=== PATIENT | female | born 1995 | race Caucasian/White ===

== ENCOUNTER → 2019-04-15 17:26 | Outpatient (CLI) | payer OTHER, MEDICAID, SELFPAY ==
[2019-04-15 17:59] LABS: Add Manual Diff / Slide Review NO; Basophils Absolute Auto 0 /uL (0-100); Basophils Percent Auto 0.3 % (0-2); Eosinophils Absolute Auto 400 /uL (0-450); Eosinophils Percent Auto 4.6 % (2-4); Hematocrit 42.4 % (36-46); Lymphocytes Absolute Auto 2200 /uL (1100-4500); Lymphocytes Percent Auto 24.3 % (25-40); Mean Corpuscular HGB Conc 33.1 % (30-36); Mean Corpuscular Hemoglobin 32.4 PG (26-34); Monocytes Absolute Auto 600 /uL (0-900); Monocytes Percent Auto 6.3 % (3-14); Neutrophils Absolute Auto 5800 /uL (1500-7000); Neutrophils Percent Auto 64.5 % (50-75); Platelet Count 208 X10^3/uL (150-400); Red Blood Cell Count 4.33 X10^6/uL (4.0-5.2); Red Cell Distribution Width 12.1 % (11.6-14.8)
[2019-04-15 18:08] LABS: Appearance Urine UA CLEAR; Bilirubin Urine UA NEGATIVE (NEGATIVE); Color Urine UA YELLOW; Glucose Urine UA NEGATIVE (Negative); Ketones Urine UA NEGATIVE (NEGATIVE); Leukocyte Esterase Urine UA NEGATIVE (NEGATIVE); Nitrite Urine UA NEGATIVE (Negative); Occult Blood Urine UA NEGATIVE (Negative); Protein Urine UA NEGATIVE (Negative); Specific Gravity Urine UA 1.015 (1.000-1.035); Urobilinogen Urine UA 0.2 E.U./dL (0.2)
[2019-04-15 20:33] LABS: Hepatitis B Surface Antigen NEGATIVE s/c (NEGATIVE); Rubella Antibody IgG 51.2 IU/mL (>15)
[2019-04-15 20:52] LABS: HIV 1 & 2 Ab/Ag 4th Gen Combo NEGATIVE (NEGATIVE); Hep C Virus Ab w/Reflex Quant NEGATIVE s/c (NEGATIVE)
[2019-04-17 20:35] LABS: RPR Screen Nonreactive (Nonreactive)
[2019-04-18 19:53] LABS: HCG Quantitative /Beta subunit 14552 mIU/mL
[2019-04-19 08:02] LABS: Varicella IgG Antibody < 135.00 Index (< 135.00)
== END ==
PROVIDERS: Family Provider Physician Assistant Medical; PCP Physician Assistant Medical; Referring Provider Obstetrics & Gynecology; Visit Provider Obstetrics & Gynecology
DX: Z34.81 Encounter for supervision of other normal pregnancy, first trimester (principal); N96 Recurrent pregnancy loss
CPT/HCPCS: 36415; 80055; 81003; 84702; 86787; 86803; 86850; 86900; 86901; 87086; 87389

== ENCOUNTER → 2019-07-30 11:41 | Outpatient (CLI) | payer OTHER, MEDICAID, SELFPAY ==
--- NOTE | 2019-07-30 11:43 | DI.US.S_ITS ---
PROCEDURE: US OB >= 14 WEEKS FETUS INDICATIONS: ANATOMY SCAN OUTSIDE/PRIOR DATING DATA: Last menstrual period (LMP): 03/02/19. LMP-based estimated date of delivery (SAJI): 11/23/19. First dating scan (date and location): 05/02/19. Estimated date of delivery (SAJI) from first dating scan: 12/15/19. TECHNIQUE: Real-time scanning was performed of the fetus, with image documentation and biometric measurements. Endovaginal scanning: The performed COMPARISON: [facility], OB <= 14 WEEKS FETUS, 05/02/2019, 12:04. [facility], OB <= 14 WEEKS FETUS, 04/25/2019, 11:35. [facility], OB <= 14 WEEKS FETUS, 04/15/2019, 17:06. FINDINGS: General: A single living intrauterine gestation is present. Presentation: Breech. Placenta: Placental position is anterior, without previa. Amniotic fluid index: 16.2 cm, normal range is 5-24 cm. heart rate: 160 beats per minute. Maternal cervical canal: 3.2 cm long. Normal lower limit is 2.5 cm. biometrics: Biparietal diameter: 4.7 cm, 20 weeks one day Head circumference: 16.9 cm, 19 weeks 4 days Abdominal circumference: 14.4 cm, 19 weeks 5 days Femur length: 3.2 cm, 20 weeks zero days Estimated gestational age from initial scan: 20 weeks 2 days Composite gestational age from present scan: 20 weeks one day Estimated weight and percentile: 316 g, 23rd percentile Measurement variability for biometric dating: +/- 7 days from 14 weeks to 15 weeks 6 days gestation, +/- 10 days from 16 weeks to 21 weeks 6 days gestation, +/- 2 weeks from 22 weeks to 27 weeks 6 days gestation, +/- 3 weeks for 28 weeks gestation or later. weight reference: 4500 g or EFW >90/95% is considered macrosomia or large for gestational age. EFW <10% is small for gestational age. EFW 5% or less is considered intra-uterine growth restriction. Anatomic survey: Neuro: Ventricles are non-dilated at less than 10 mm. Cisterna magna is normal at 3-11 mm. Cerebellum is normal in size and morphology. Nuchal skin fold: Normal at less than 6 mm between 14-21 weeks gestational age. Face: Nose and lips, facial profile are normal. Spine: No evidence for spina bifida. Heart: 4-chambered heart is present, with normal ventricular outflow tracts. Diaphragm: Diaphragm is intact. Stomach: Left-sided stomach is present. Kidneys: No hydronephrosis. Normal is less than 5 mm in 2nd trimester, less than 7 mm in 3rd trimester. Cord: 3-vessel cord has orthotopic insertion. Bladder: Normal in size. Extremities: All 4 extremities identified. IMPRESSION: Single living intrauterine fetus in breech presentation demonstrating expected interval growth. Normal anatomic survey Dictated by: Jose D Javier M.D. on 07/30/2019 at 16:10 Approved by: Jose D Javier M.D. on 07/30/2019 at 16:14
== END ==
PROVIDERS: Family Provider Physician Assistant Medical; Referring Provider Obstetrics & Gynecology; Visit Provider Obstetrics & Gynecology
DX: Z36.89 Encounter for other specified antenatal screening (principal); Z3A.20 20 weeks gestation of pregnancy
CPT/HCPCS: 76811

== ENCOUNTER → 2019-07-31 16:18 | Outpatient (CLI) | payer OTHER, MEDICAID, SELFPAY | PROVIDERS: Family Provider Physician Assistant Medical; Visit Provider Obstetrics & Gynecology | DX: Z34.82 Encounter for supervision of other normal pregnancy, second trimester (principal); R30.0 Dysuria; Z3A.20 20 weeks gestation of pregnancy | CPT/HCPCS: 87077; 87086; 87186 ==

== ENCOUNTER → 2019-09-19 13:45 | Outpatient (CLI) | payer OTHER, MEDICAID, SELFPAY ==
[2019-09-19 16:14] LABS: Hematocrit 28.2 % (36-46); Hemoglobin 9.8 g/dL (12.0-16.0)
[2019-09-19 16:57] LABS: GTT (PREG) 1 Hour PP 50gm Dose 134 mg/dL (76-139)
== END ==
PROVIDERS: Family Provider Physician Assistant Medical; Referring Provider Obstetrics & Gynecology; Visit Provider Obstetrics & Gynecology
DX: Z34.92 Encounter for supervision of normal pregnancy, unspecified, second trimester (principal); N39.0 Urinary tract infection, site not specified; Z3A.25 25 weeks gestation of pregnancy
CPT/HCPCS: 36415; 82950; 85014; 85018; 87077; 87086; 87186

== ENCOUNTER 2019-10-16 20:08 | Observation (INO) | payer OTHER, MEDICAID, SELFPAY ==
[2019-10-16] VITALS (11 sets, daily range): BP systolic 108–137; BP diastolic 59–81; PULSE 87–107; RESP 19; TEMP 37.3; O2SAT 98–100; BMI 25.3
[2019-10-16 20:41] LABS: RBC Urine None Seen (0-5/HPF)
[2019-10-16 20:49] LABS: Amorphous Sediment Urine 1+; Bacteria Urine Moderate (10-30); Culture Indicated Urine Specimen Cultured; Squamous Epithelial Cell Urine 1-5 /HPF (0-5/HPF); WBC Urine 5-10/HPF (0-5/HPF)
--- NOTE | 2019-10-16 21:18 | ED.FEMALEGU ---
HPI - Female Genitourinary General Chief complaint: Urogenital-Female Stated complaint: right sided back pain Time Seen by Provider: 10/16/19 20:10 Source: patient Mode of arrival: Family Vehicle Limitations: no limitations History of Present Illness HPI Narrative: 23-year-old female occasional smoker is a at 31 weeks who presents with her mother and a chief complaint of a few days of increasing right flank pain with fever, chills, dysuria and frequency. She has had nausea but no vomiting. She denies any dizziness, weakness or lightheadedness. Her discomfort is worse with motion and improves with rest. She denies any radiation of the pain. She feels generally unwell. She denies vaginal bleeding, discharge or leakage of fluid but does admit to some lower pelvic cramping and discomfort. She states this discomfort comes and goes with a pattern of its own. She is still feeling her baby move as stated is decreased when compared to normal MD Complaint: dysuria, UTI and pelvic pain Onset (ago): day(s) Location: suprapubic Female Urogenital Radiation: R Flank Severity: moderate Quality: Aching and Cramping Duration: constant (flank) and intermittent (pelvic) Exacerbating factors: urination Related Data Home Medications Medication Instructions Recorded Confirmed albuterol sulfate [Ventolin HFA] 1 puff INH PRN PRN #0 06/10/12 10/17/19 vitamins no.119-iron 1 tab PO DAILY 04/15/19 10/17/19 fumarate 29 mg-folic acid 1 mg tablet Previous Rx's Medication Instructions Recorded metoclopramide HCl 10 mg tablet 10 mg PO Q6H PRN #30 tab 08/07/19 Allergies Allergy/AdvReac Type Severity Reaction Status Date / Time No Known Drug Allergies Allergy Verified 09/19/19 14:39 Review of Systems Constitutional Constitutional: Denies chills, Denies fatigue, Denies fever(s), Denies frequent falls, Denies lethargy and Denies weakness Eyes Eyes: Denies change in vision, Denies eye discharge, Denies irritation and Denies loss of vision ENT Ears, Nose, Mouth, and Throat: Denies change in voice, Denies dizziness, Denies neck pain, Denies sore throat and Denies throat swelling Cardiovascular Cardiovascular: Denies chest pain, Denies irregular heart rhythm, Denies lightheadedness, Denies palpitations, Denies dyspnea, Denies dyspnea on exertion and Denies orthopnea Respiratory Respiratory: Denies cough, Denies dyspnea, Denies dyspnea on exertion and Denies wheezing Gastrointestinal Gastrointestinal: Denies abdominal pain, Denies change in bowel habits, Denies diarrhea, Denies nausea and Denies vomiting Genitourinary Genitourinary: Reports dysuria Genitourinary: Reports dysuria and Reports pelvic pain Musculoskeletal Musculoskeletal: Denies neck pain and Denies numbness Integumentary/Breasts Skin/Breast: Denies pruritus, Denies erythema, Denies rash and Denies wounds Neurologic Neurologic: Denies behavioral changes, Denies confusion, Denies dizziness, Denies frequent falls, Denies loss of vision, Denies numbness and Denies weakness Psychiatric Psychiatric: Denies anxiety, Denies behavioral changes, Denies confusion, Denies depression, Denies homicidal ideation and Denies suicidal ideation Endocrine Endocrine: Denies fatigue, Denies flushing and Denies palpitations Hematologic/Lymphatic Hematologic/Lymphatic: Denies easy bruising Allergic/Immunologic Allergic/Immunologic: Denies urticaria, Denies throat swelling and Denies wheezing Patient History Medical History (Updated 10/17/19 @ 00:46 by Dung Hollis DO) Anxiety (Acute) Asthma (Acute) Depression (Acute) History of multiple miscarriages (Acute) OCD (obsessive compulsive disorder) (Acute) Pyelonephritis (Acute) Tonsillitis (Acute) UTI (urinary tract infection) (Acute) Surgical History (Updated 04/12/19 @ 12:47 by Payton Mittal RN) History of inguinal hernia repair (Acute) Family History (Updated 04/12/19 @ 12:51 by Payton Mittal RN) Mother Hypertension Recurrent strokes Father Adopted Grandfather Tourettes syndrome Family/Other Tourettes syndrome Brother Tourettes syndrome Autism Grandmother Breast cancer Substance Use Type: does not use Exam Narrative Exam Narrative: GENERAL: [23] year old patient appears stated age. Well-nourished, well-developed patient, in mild distress. Obviously feeling unwell HEAD: Atraumatic. Normocephalic. EYES: Pupils equal round and reactive. Extraocular motions intact. No scleral icterus. No injection or drainage. ENT: Nose without bleeding, purulent drainage. Throat without erythema, tonsillar hypertrophy or exudate. Airway patent. NECK: Trachea midline. Non tender CARDIOVASCULAR: Regular rate and rhythm without murmurs, gallops, or rubs. RESPIRATORY: Clear to auscultation. Breath sounds equal bilaterally. No wheezes, rales, or rhonchi. GASTROINTESTINAL: Abdomen soft, gravid above the umbilicus, motion palpated, nondistended. EXTREMITIES: No edema or joint tenderness. BACK: Tender to palpate in the right flank NEURO: AOx3. SKIN: No rash or erythema of visible areas Initial Vital Signs Initial Vital Signs: Vital Signs Temperature 99.1 F 10/16/19 20:14 Pulse Rate 107 H 10/16/19 20:14 Respiratory Rate 19 10/16/19 20:14 Blood Pressure 129/80 10/16/19 20:14 Pulse Oximetry 98 10/16/19 20:14 Course Course Course Narrative: Discussion with on-call Ob (Dr. Quezada) to discuss this case. We sure the opinion that given her advanced , abnormal vital signs, evidence suggesting pyelonephritis she is most appropriately admitted into the hospital, given antibiotics, fluids and closely followed. Orders Ordered: ED Orders 10/16/19 20:20 Urine Culture Stat Urine Microscopic Stat 10/16/19 21:34 Basic Metabolic Panel Stat Complete Blood Count AUTO DIFF Stat Lactate (Lactic Acid) Stat Uric Acid Stat 10/16/19 21:50 US OB limited Stat US renal complete Stat 10/16/19 22:00 Blood Culture Stat Acetaminophen (Tylenol) 650 mg PO Q6HR PRN PRN Reason: Fever/Mild Pain (1-3) Last Admin: 10/17/19 00:33 Dose: 650 mg Documented by: WILFRED Albuterol (Ventolin Hfa (Vent/Covid R/O)) 1 puff INH PRN ONEAL Last Admin: 10/17/19 01:55 Dose: Not Given Documented by: WILFRED Lactated Ringer's (Lactated Ringers) 1,000 mls @ 150 mls/hr IV CONT ONEAL Last Admin: 10/17/19 00:33 Dose: 150 mls/hr Documented by: WILFRED Metoclopramide HCl (Reglan) 10 mg PO Q6H PRN PRN Reason: nausea and vomiting Ondansetron HCl (Zofran) 4 mg IV Q4HR PRN PRN Reason: Nausea And Vomiting Discontinued Medications Sodium Chloride (Normal Saline 0.9%) 1,000 mls @ 1,000 mls/hr IV BOLUS ONE Stop: 10/16/19 22:25 Last Infusion: 10/16/19 23:16 Dose: 0 mls/hr Documented by: Admin: 10/16/19 21:26 Dose: 1,000 mls/hr Documented by: AWAIS Ceftriaxone Sodium/Dextrose (Rocephin) 1 gm in 50 mls @ 100 mls/hr IV NOW ONE Stop: 10/16/19 21:55 Last Infusion: 10/16/19 23:16 Dose: 0 mls/hr Documented by: Admin: 10/16/19 22:45 Dose: 100 mls/hr Documented by: AWAIS Vital Signs Vital signs: Vital Signs - 8 hr 10/16/19 21:00 10/16/19 21:30 10/16/19 22:00 Pulse Rate 91 H 96 H 87 Blood Pressure 133/77 136/81 132/68 Pulse Oximetry 98 98 100 10/16/19 22:12 10/16/19 22:23 Pulse Rate 101 H 97 H Blood Pressure 137/78 Pulse Oximetry 99 99 MDM - Female Genitourinary Lab Data Result diagrams: 10/16/19 21:34 10/16/19 21:34 Labs: Lab Results 10/16/19 10/16/19 10/16/19 Range/Units 20:20 21:34 21:34 WBC 9.7 (4.5-11.0) X10^3/uL RBC 2.90 L (4.0-5.2) X10^6/uL Hgb 9.1 L (12.0-16.0) g/dL Hct 26.1 L (36-46) % MCV 90.0 (80-100) fL MCH 31.3 (26-34) PG MCHC 34.8 (30-36) % RDW 12.5 (11.6-14.8) % Plt Count 139 L (150-400) X10^3/uL Neut % (Auto) 76.9 H (50-75) % Lymph % (Auto) 13.1 L (25-40) % [place] % (Auto) 7.8 (3-14) % Eos % (Auto) 2.0 (2-4) % Baso % (Auto) 0.2 (0-2) % Neut # (Auto) 7500 H (4283-2078) /uL Lymph # (Auto) 1300 (3221-2151) /uL [place] # (Auto) 800 (0-900) /uL Eos # (Auto) 200 (0-450) /uL Baso # (Auto) 0 (0-100) /uL Sodium 133 L (137-145) mmol/L Potassium 3.2 L (3.4-5.1) mmol/L Chloride 104 (98-107) mmol/L Carbon Dioxide 24 (22-32) mmol/L BUN 6 L (7-17) mg/dL Creatinine 0.64 (0.52-1.04) mg/dL Estimated GFR > 60.0 (>60) mL/min BUN/Creatinine Ratio 9.4 (6-22) Glucose 81 (70-100) mg/dL Lactate (0.7-2.1) mmol/L Uric Acid (2.5-6.2) mg/dL Calcium 9.5 (8.4-10.2) mg/dL Urine RBC None seen (0-5/HPF) Urine WBC 5-10/hpf H (0-5/HPF) Ur Squamous Epith Cells 1-5 /hpf (0-5/HPF) Amorphous Sediment 1+ Urine Bacteria Moderate (10-30) H (None) Ur Culture Indicated? Specimen cultured COVID-19 PCR (Negative) 10/16/19 10/16/19 10/16/19 Range/Units 21:34 21:34 22:20 WBC (4.5-11.0) X10^3/uL RBC (4.0-5.2) X10^6/uL Hgb (12.0-16.0) g/dL Hct (36-46) % MCV (80-100) fL MCH (26-34) PG MCHC (30-36) % RDW (11.6-14.8) % Plt Count (150-400) X10^3/uL Neut % (Auto) (50-75) % Lymph % (Auto) (25-40) % [place] % (Auto) (3-14) % Eos % (Auto) (2-4) % Baso % (Auto) (0-2) % Neut # (Auto) (3380-4476) /uL Lymph # (Auto) (0168-7839) /uL [place] # (Auto) (0-900) /uL Eos # (Auto) (0-450) /uL Baso # (Auto) (0-100) /uL Sodium (137-145) mmol/L Potassium (3.4-5.1) mmol/L Chloride (98-107) mmol/L Carbon Dioxide (22-32) mmol/L BUN (7-17) mg/dL Creatinine (0.52-1.04) mg/dL Estimated GFR (>60) mL/min BUN/Creatinine Ratio (6-22) Glucose (70-100) mg/dL Lactate 0.6 L (0.7-2.1) mmol/L Uric Acid 5.5 (2.5-6.2) mg/dL Calcium (8.4-10.2) mg/dL Urine RBC (0-5/HPF) Urine WBC (0-5/HPF) Ur Squamous Epith Cells (0-5/HPF) Amorphous Sediment Urine Bacteria (None) Ur Culture Indicated? COVID-19 PCR Negative (Negative) Urine Dip Bedside Urine Glucose Negative Bedside Urine Bilirubin - Negative Bedside Urine Ketone + 15 Urine Specific [place] 1.010 Bedside Urine Occult Blood - Negative Bedside Urine pH 6.5 Bedside Urine Protein +/- 15 Bedside Urine Urobilinogen - Negative Bedside Urine Nitrite - Negative Bedside Urine Leukocytes + 70 Esterase Discharge Plan Departure Patient Disposition: Admitted As Inpatient Clinical Impression: Pyelonephritis affecting Qualifiers: Trimester: third trimester Qualified Code(s): O23.03 - Infections of kidney in , third trimester Discharge Date/Time: 10/17/19 00:01 Admit Date/Time: 10/16/19 22:37 Admit Provider: Beba Quezada
[2019-10-16] MEDS: SODIUM CHLORIDE 0.9% 1,000 ML 1000 ML IV (21:26)
--- NOTE | 2019-10-16 21:30 | PC.NURSE ---
PT states 31 weeks with R flank pain radiating to front lower abd and pelvic pain with fever of 101.5 T, last dose of tylenol 500mg at 1900. Denies vaginal bleeding, G2 L1.
--- NOTE | 2019-10-16 21:50 | DI.US.S_ITS ---
PROCEDURE: US RENAL COMPLETE INDICATIONS: RIGHT FLANK PAIN TECHNIQUE: Real-time scanning was performed of the kidneys and bladder, with image documentation. COMPARISON: None. FINDINGS: Kidneys: Kidneys are normal in size. Right kidney measures 11.4 cm long; left kidney measures 11.1 cm long. Right renal cortical thickness is 1.0 cm; left renal cortical thickness is 1.0 cm. Renal cortical echotexture is normal. The renal . Meds are echogenic bilaterally. No hydronephrosis or nephrolithiasis. No suspicious solid mass lesions. Bladder: Urinary bladder was completely decompressed at the time of imaging and cannot be evaluated. Miscellaneous: No free pelvic fluid. IMPRESSION: 1. No renal stone or hydronephrosis. 2. Bilateral echogenic renal pyramids concerning for nephrocalcinosis. Differential diagnosis is broad, but includes medullary sponge kidney, renal tubular acidosis and hyperparathyroidism. Dictated by: Evette Arora MD, PhD on 10/17/2019 at 7:59 Approved by: Evette Arora MD, PhD on 10/17/2019 at 8:04
--- NOTE | 2019-10-16 21:50 | DI.US.S_ITS ---
PROCEDURE: US OB INDICATIONS: CRAMPING OUTSIDE/PRIOR DATING DATA: Last menstrual period (LMP): March 02, 2019. LMP-based estimated date of delivery (SAJI): November 22, 2019. First dating scan (date and location): May 02, 2019. Estimated date of delivery (SAJI) from first dating scan: December 15, 2019. TECHNIQUE: Real-time scanning was performed of the fetus, with image documentation. Endovaginal scanning: Performed COMPARISON: [facility], OB <= 14 WEEKS FETUS, 04/25/2019, 11:35. Located within [facility], OB <= 14 WEEKS FETUS, 04/15/2019, 17:06. FINDINGS: A single living intrauterine gestation is present. Presentation: Breech Placenta: Placental position is anterior, without previa. Amniotic fluid index: 13.3 cm, normal range is 5-24 cm. heart rate: 165 beats per minute. Maternal cervical canal: Not measured. BPD: 31 weeks 5 days. HC: 31 weeks 6 days. AC: 31 weeks 1 day. FL: 31 weeks 0 days. Estimated gestational age from initial scan: 31 weeks 3 days. Estimated gestational age from current scan: 33 weeks 3 days IMPRESSION: 1. Single living intrauterine gestation with appropriate interval growth. 2. Normal amniotic fluid index. Dictated by: Evette Arora MD, PhD on 10/17/2019 at 8:05 Approved by: Evette Arora MD, PhD on 10/17/2019 at 8:10
[2019-10-16 21:57] LABS: Add Manual Diff / Slide Review NO; Basophils Absolute Auto 0 /uL (0-100); Basophils Percent Auto 0.2 % (0-2); Eosinophils Absolute Auto 200 /uL (0-450); Hematocrit 26.1 % (36-46); Hemoglobin 9.1 g/dL (12.0-16.0); Lymphocytes Absolute Auto 1300 /uL (1100-4500); Lymphocytes Percent Auto 13.1 % (25-40); Mean Corpuscular HGB Conc 34.8 % (30-36); Mean Corpuscular Hemoglobin 31.3 PG (26-34); Monocytes Absolute Auto 800 /uL (0-900); Monocytes Percent Auto 7.8 % (3-14); Neutrophils Absolute Auto 7500 /uL (1500-7000); Neutrophils Percent Auto 76.9 % (50-75); Platelet Count 139 X10^3/uL (150-400); Red Cell Distribution Width 12.5 % (11.6-14.8); White Blood Cell Count 9.7 X10^3/uL (4.5-11.0)
[2019-10-16 22:08] LABS: Lactate (Lactic Acid) 0.6 mmol/L (0.7-2.1); Uric Acid 5.5 mg/dL (2.5-6.2)
[2019-10-16 22:09] LABS: BUN Creatinine Ratio 9.4 (6-22); Blood Urea Nitrogen 6 mg/dL (7-17); Calcium 9.5 mg/dL (8.4-10.2); Carbon Dioxide 24 mmol/L (22-32); Chloride 104 mmol/L (98-107); Estimated Glomerular Filt Rate > 60.0 mL/min (>60); Glucose 81 mg/dL (70-100); HEMOLYSIS < 15 (0-50); Potassium 3.2 mmol/L (3.4-5.1); Sodium 133 mmol/L (137-145)
[2019-10-16] MEDS: CEFTRIAXONE 1 GM/50 ML FROZ.PIGGY IV (22:45)
[2019-10-16 23:28] LABS: COVID19 -Nasal RAPID Negative (Negative)
--- NOTE | 2019-10-16 23:34 | PC.NURSE ---
Heart tones 150 with zero contractions per verbal report of assessment by [facility] JULIETTE Brownlee @ [phone].
[2019-10-17] VITALS (7 sets, daily range): BP systolic 123–153; BP diastolic 67–85; PULSE 67–103; RESP 16–18; TEMP 36.1–36.8; O2SAT 99–101
[2019-10-17] MEDS: LACTATED RINGERS 1,000 ML 150 ML IV ×3 (00:33→14:55)
[2019-10-17] MEDS: ACETAMINOPHEN 325 MG TABLET 650 MG PO ×4 (00:33→22:09)
[2019-10-17] MEDS: CEFAZOLIN 1 GM/50 ML FROZ.PIGGY IV ×2 (14:51→22:09)
--- NOTE | 2019-10-17 15:06 | CM.IDA ---
Initial DCP Assessment Note Patient is a 23 yo female, resident of [place]. Patient 31 weeks , here w/ pyelo, expected to DC back home tomorrow on oral abx PCP: Sheela Felder Payer: Madhu/SHEFALI Met w/patient and her mom in room. Gma and other family taking care of patient's 5 yo while patient admitted. Patient feels confident in discharging home w/her mom and supportive family; per notes patient plans to move out of state after delivery and healing, partner is active duty. No needs identified at this time or barriers to safe return home; will remain available in case this changes. NOHELIA Maxwell
[2019-10-17] MEDS: CALCIUM CARBONATE 500 MG TAB PO (17:17)
--- NOTE | 2019-10-17 18:46 | PM.GYNHP.1 ---
History of Present Illness History of Present Illness Reason for admission: other (Pyelonephritis at 31 weeks gestation) Narrative: Aimee Ortiz is a 23 year old female 7 para 1 at 31 weeks gestation who presented last evening with nausea, fever, and right-sided back pain. She has had good movement. No leakage of fluid or vaginal bleeding. No contractions. No shortness of breath. She threw up once. [facility] Medical History (Updated 10/17/19 @ 00:46 by Dung Hollis DO) Anxiety (Acute) Asthma (Acute) Depression (Acute) History of multiple miscarriages (Acute) OCD (obsessive compulsive disorder) (Acute) Pyelonephritis (Acute) Tonsillitis (Acute) UTI (urinary tract infection) (Acute) Surgical History (Updated 04/12/19 @ 12:47 by Payton Mittal RN) History of inguinal hernia repair (Acute) Family History (Updated 04/12/19 @ 12:51 by Payton Mittal RN) Mother Hypertension Recurrent strokes Father Adopted Grandfather Tourettes syndrome Family/Other Tourettes syndrome Brother Tourettes syndrome Autism Grandmother Breast cancer Social History marital status: unmarried,single household members: family and children pets and animals: Yes (X 5 dogs; X 6 cats - [place] : aware!) education level: vocational occupational status: employed current occupational exposures/hazards: Yes (second hand smoke) special david needs: No Smoking Status: Current some day smoker alcohol intake: never Meds Home Medications and Allergies Home Medications Medication Instructions Recorded Confirmed Type albuterol sulfate [Ventolin HFA] 1 puff INH PRN PRN #0 06/10/12 10/17/19 History vitamins no.119-iron 1 tab PO DAILY 04/15/19 10/17/19 History fumarate 29 mg-folic acid 1 mg tablet metoclopramide HCl 10 mg tablet 10 mg PO Q6H PRN #30 tab 08/07/19 10/17/19 Rx Allergies Allergy/AdvReac Type Severity Reaction Status Date / Time No Known Drug Allergies Allergy Verified 09/19/19 14:39 Exam Vital Signs (past 8 hours): - 10/17/19 11:10 10/17/19 15:30 Temperature 97.1 F L 97.0 F L Pulse Rate 82 96 H Respiratory Rate 18 16 Blood Pressure 123/67 139/74 Pulse Oximetry 99 100 Oxygen Delivery Method Room Air Oxygen Flow Rate 0 Narrative Exam Narrative: Generally: Patient is sitting up in bed, no acute distress Lungs: Clear to auscultation bilaterally Cardiovascular: Regular rate and rhythm Abdomen: Soft, good bowel sounds Fundal height: 32 cm Extremities: Negative Homans, no edema Back: Right CVA tenderness Nonstress test interpretation: Baseline heart rate 140s to 150s. Accelerations present: A few variable decelerations. No contractions. Category 1 tracing. Objective Labs Result Diagrams: 10/16/19 21:34 10/16/19 21:34 Labs: Laboratory Results - last 24 hr 10/16/19 10/16/19 10/16/19 20:20 21:34 21:34 WBC 9.7 RBC 2.90 L Hgb 9.1 L Hct 26.1 L MCV 90.0 MCH 31.3 MCHC 34.8 RDW 12.5 Plt Count 139 L Neut % (Auto) 76.9 H Lymph % (Auto) 13.1 L [place] % (Auto) 7.8 Eos % (Auto) 2.0 Baso % (Auto) 0.2 Neut # (Auto) 7500 H Lymph # (Auto) 1300 [place] # (Auto) 800 Eos # (Auto) 200 Baso # (Auto) 0 Sodium 133 L Potassium 3.2 L Chloride 104 Carbon Dioxide 24 BUN 6 L Creatinine 0.64 Estimated GFR > 60.0 BUN/Creatinine Ratio 9.4 Glucose 81 Lactate Uric Acid Calcium 9.5 Urine RBC None seen Urine WBC 5-10/hpf H Ur Squamous Epith Cells 1-5 /hpf Amorphous Sediment 1+ Urine Bacteria Moderate (10-30) H Ur Culture Indicated? Specimen cultured COVID-19 PCR 10/16/19 10/16/19 10/16/19 21:34 21:34 22:20 WBC RBC Hgb Hct MCV MCH MCHC RDW Plt Count Neut % (Auto) Lymph % (Auto) [place] % (Auto) Eos % (Auto) Baso % (Auto) Neut # (Auto) Lymph # (Auto) [place] # (Auto) Eos # (Auto) Baso # (Auto) Sodium Potassium Chloride Carbon Dioxide BUN Creatinine Estimated GFR BUN/Creatinine Ratio Glucose Lactate 0.6 L Uric Acid 5.5 Calcium Urine RBC Urine WBC Ur Squamous Epith Cells Amorphous Sediment Urine Bacteria Ur Culture Indicated? COVID-19 PCR Negative Assessment & Plan Assessment & Plan narrative: Assessment: 23-year-old 7 para 1 at 31 weeks gestation with right-sided pyelonephritis Plan: Ancef 1 g t.i.d. Awaiting urine culture Nonstress test Q shift Once patient discharged from the hospital, and finishes course of antibiotics, will put on daily prophylactic treatment with Macrodantin Time Spent With Patient Time with patient: 15-24 minutes Quality VTE Deep Vein Thrombosis/Pulmonary Embolism Present on Admission: No
[2019-10-18] MEDS: CALCIUM CARBONATE 500 MG TAB PO (00:27)
[2019-10-18] MEDS: LACTATED RINGERS 1,000 ML 150 ML IV ×2 (00:28→08:31)
[2019-10-18 04:05] VITALS: BP 132/81; PULSE 83; RESP 16; TEMP 36.7; O2SAT 100
--- NOTE | 2019-10-18 05:26 | PC.NURSE ---
Patient reports baby kicking, and feeling movement.
[2019-10-18] MEDS: CEFAZOLIN 1 GM/50 ML FROZ.PIGGY IV (06:15)
[2019-10-18 07:20] VITALS: BP 128/80; PULSE 100; RESP 17; TEMP 35.6; O2SAT 100
[2019-10-18] MEDS: ACETAMINOPHEN 325 MG TABLET 650 MG PO (08:33)
[2019-10-18] MEDS: CEFTRIAXONE 1 GM/50 ML FROZ.PIGGY IV (08:55)
--- NOTE | 2019-10-18 10:17 | PM.OBTRLD ---
Visit Information Visit Information Date of evaluation: 10/18/19 Primary OB Provider: Faby Chambers On-call OB Provider: Wendy Nuñez Reason for Evaluation: Yes non-stress test Comments/Additional reasons for admission: This patient is a 23-year-old at 31 weeks gestation admitted to have a the [facility] floor for pyelonephritis, transported to Labor and delivery for a daily NST with no obstetrical complaints. Vital Signs Vital Signs: Vital Signs - 8 hr 10/18/19 04:05 10/18/19 07:20 Temperature 98.0 F 96.0 F L Pulse Rate 83 100 H Respiratory Rate 16 17 Blood Pressure 132/81 128/80 Pulse Oximetry 100 100 PFSH Medical History Anxiety (Acute) Asthma (Acute) Depression (Acute) History of multiple miscarriages (Acute) OCD (obsessive compulsive disorder) (Acute) Pyelonephritis (Acute) Tonsillitis (Acute) UTI (urinary tract infection) (Acute) Surgical History History of inguinal hernia repair (Acute) Family History Mother Hypertension Recurrent strokes Father Adopted Grandfather Tourettes syndrome Family/Other Tourettes syndrome Brother Tourettes syndrome Autism Grandmother Breast cancer Social History marital status: unmarried,single household members: family and children pets and animals: Yes (X 5 dogs; X 6 cats - lives on a Farm : aware!) education level: vocational occupational status: employed current occupational exposures/hazards: Yes (second hand smoke) special david needs: No Smoking Status: Current some day smoker alcohol intake: never Exam Vital Signs (past 8 hours): - 10/18/19 04:05 10/18/19 07:20 Temperature 98.0 F 96.0 F L Pulse Rate 83 100 H Respiratory Rate 16 17 Blood Pressure 132/81 128/80 Pulse Oximetry 100 100 Oxygen Delivery Method Room Air Oxygen Flow Rate 0 Objective Labs Result Diagrams: 10/16/19 21:34 10/16/19 21:34 Evaluation Evaluation Baseline heart rate: 135 Variability: Moderate (11-25) monitor accelerations: Present monitor decelerations: Absent Category of Tracing: Reactive Laboratory results: Laboratory Tests 10/16/19 10/16/19 10/16/19 20:20 21:34 21:34 WBC 9.7 RBC 2.90 L Hgb 9.1 L Hct 26.1 L MCV 90.0 MCH 31.3 MCHC 34.8 RDW 12.5 Plt Count 139 L Neut % (Auto) 76.9 H Lymph % (Auto) 13.1 L [place] % (Auto) 7.8 Eos % (Auto) 2.0 Baso % (Auto) 0.2 Neut # (Auto) 7500 H Lymph # (Auto) 1300 [place] # (Auto) 800 Eos # (Auto) 200 Baso # (Auto) 0 Sodium 133 L Potassium 3.2 L Chloride 104 Carbon Dioxide 24 BUN 6 L Creatinine 0.64 Estimated GFR > 60.0 BUN/Creatinine Ratio 9.4 Glucose 81 Lactate Uric Acid Calcium 9.5 Urine RBC None seen Urine WBC 5-10/hpf H Ur Squamous Epith Cells 1-5 /hpf Amorphous Sediment 1+ Urine Bacteria Moderate (10-30) H Ur Culture Indicated? Specimen cultured COVID-19 PCR 10/16/19 10/16/19 10/16/19 21:34 21:34 22:20 WBC RBC Hgb Hct MCV MCH MCHC RDW Plt Count Neut % (Auto) Lymph % (Auto) [place] % (Auto) Eos % (Auto) Baso % (Auto) Neut # (Auto) Lymph # (Auto) [place] # (Auto) Eos # (Auto) Baso # (Auto) Sodium Potassium Chloride Carbon Dioxide BUN Creatinine Estimated GFR BUN/Creatinine Ratio Glucose Lactate 0.6 L Uric Acid 5.5 Calcium Urine RBC Urine WBC Ur Squamous Epith Cells Amorphous Sediment Urine Bacteria Ur Culture Indicated? COVID-19 PCR Negative Diagnosis, Plan/Disposition Plan/Disposition Plan: Patient to return to med surg floor for treatment for pyelonephritis. OB Disposition: other
[2019-10-18 11:23] VITALS: BP 126/72; PULSE 90; RESP 17; TEMP 36.4; O2SAT 100
--- NOTE | 2019-10-18 12:25 | P.DS_ITS ---
History of Present Illness History of Present Illness Date Patient Seen: 10/18/19 Time Patient Seen: 12:25 Date of Onset of Symptoms: 10/14/19 Chief complaint: right sided back pain Narrative: 31 week gestation with presumed pyelonephritis. She had a low-grade fever of 99.1, right flank pain and nausea with 1 episode of vomiting. She was admitted for IV antibiotics. Discharge Providers Provider Date of admission: 10/16/19 22:37 Discharge Date: 10/18/19 Discharge provider: Leatha Buckner MD Summary Hospital Course Discharge Diagnosis: Right-sided pyelonephritis and 31 week gestation Hospital Course: She was afebrile since admission, her pain has resolved, the culture and sensitivity have returned and she will be sent home on appropriate oral antibiotics. Status at Discharge Cognitive/behavioral status at discharge: oriented Functional status at discharge: independent ambulation Overall status at discharge: patient is back to baseline Time Spent with Patient Time spent: Less than 30 minutes Exam Vital Signs (past 8 hours): - 10/18/19 07:20 10/18/19 11:23 Temperature 96.0 F L 97.6 F Pulse Rate 100 H 90 Respiratory Rate 17 17 Blood Pressure 128/80 126/72 Pulse Oximetry 100 100 Oxygen Delivery Method Room Air Oxygen Flow Rate 0 Narrative Exam Narrative: Abdomen is soft, nontender with gravid uterus. No CVA tenderness. Extremities without edema and nontender. Nonstress test done today was reactive Objective Labs Result Diagrams: 10/16/19 21:34 10/16/19 21:34 Discharge Assessment & Plan Assessment and Plan Assessment: Patient with pyelonephritis improving. Significant iron deficiency anemia Plan of Treatment: Patient was given a dose of IV ceftriaxone due to the urine culture sensitivities. She will be sent home on oral Bactrim because she was treated previously with Macrodantin and had a recurrence of a bladder infection very q [facility]. Patient was noted to be significantly anemic so will get 1 dose of IV iron sucrose prior to discharge. Discharge Plan Discharge Plan Patient Disposition: Home Discharge orders & Medications Prescriptions: New sulfamethoxazole-trimethoprim 800-160 mg tablet 1 tab PO BID Qty: 14 RF: 0 Continued albuterol sulfate [Ventolin HFA] 90 MCG/PUFF HFA aerosol inhaler 1 puff INH PRN PRN (Reason: Shortness Of Breath) Qty: 0 RF: 0 metoclopramide HCl 10 mg tablet 10 mg PO Q6H PRN (Reason: nausea and vomiting) Qty: 30 RF: 3 PNV 119-iron fum-folic acid 29 mg iron- 1 mg tablet 1 tab PO DAILY RF: 0 Follow up/Referrals: Faby Chambers MD [Physician] - As previously scheduled (has appointment on the ) Diet/Activity/Treatments Diet: Regular Activity: no restrictions Skin/Wound/Dressing Care Report to your healthcare provider any signs of infection, such as:: chills, fever and increased pain Visit Report/Discharge Packet Instructions: DI for Kidney Infection Quality VTE Deep Vein Thrombosis/Pulmonary Embolism Present on Admission: No
[2019-10-18] MEDS: TRIMETH/SULFA 160/800 (DS) TABLET 1 TAB PO (12:35)
--- NOTE | 2019-10-18 12:45 | PC.NURSE ---
Day shift note: Discharge instructions given to patient, discussed importance of antibiotic adherence, s/sx of infections, and new medication. Verbalized understanding of instructions. Discharge home via private vehicle.
[2019-10-18] MEDS: IRON SUCROSE 100 MG in SODIUM CHLORIDE 0.9% 100 ML 420 ML IV (12:59)
== END 2019-10-18 13:35 | disposition home or self-care (01) | DRG 566 ==
LOC: ED 21:47 → AC 22:39
PROVIDERS: Admitting Provider Family Medicine; Emergency Provider Emergency Medicine; Family Provider Physician Assistant Medical; Referring Provider Emergency Medicine; Visit Provider Obstetrics & Gynecology
DX: O23.03 Infections of kidney in pregnancy, third trimester (principal); N10 Acute pyelonephritis; O99.013 Anemia complicating pregnancy, third trimester; D50.9 Iron deficiency anemia, unspecified; Z3A.31 31 weeks gestation of pregnancy
CPT/HCPCS: 36415; 59025; 76770; 76815; 80048; 81003; 81015; 83605; 84550; 85025; 87040; 87077; 87086; 87186; 87635; 96361; 96365; 99223; 99238; 99284; G0378; A9270; J1756

== ENCOUNTER 2019-10-31 19:37 | Outpatient (CLI) | payer OTHER, MEDICAID, SELFPAY ==
[2019-10-16 23:44] VITALS: BMI 25.3
--- NOTE | 2019-11-06 21:50 | PM.OBTRLD ---
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) OCD (obsessive compulsive disorder) (Acute) Pyelonephritis (Acute) Tonsillitis (Acute) UTI (urinary tract infection) (Acute) Surgical History History of inguinal hernia repair (Acute) Family History Mother Hypertension Recurrent strokes Father Adopted Grandfather Tourettes syndrome Family/Other Tourettes syndrome Brother Tourettes syndrome Autism Grandmother Breast cancer Social History marital status: unmarried,single household members: family and children pets and animals: Yes (X 5 dogs; X 6 cats - lives on a Farm : aware!) education level: vocational occupational status: employed current occupational exposures/hazards: Yes (second hand smoke) special david needs: No Smoking Status: Current some day smoker alcohol intake: never Evaluation Evaluation Baseline heart rate: 140 Variability: Moderate (11-25) monitor accelerations: Present monitor decelerations: Absent Contraction Frequency (minutes): 10 Uterine Contraction Intensity: Mild Category of Tracing: Reactive Cervical dilation (cm): 0 Cervical effacement (%): 50 station: -1 Diagnosis, Plan/Disposition Plan/Disposition Plan: 33 weeks gestation Not in labor OB Disposition: home
== END 2019-10-31 21:15 | disposition home or self-care (01) ==
LOC: LABOR 19:43 → OB 05-26 08:27
PROVIDERS: Family Provider Physician Assistant Medical; Referring Provider Obstetrics & Gynecology; Visit Provider Obstetrics & Gynecology
DX: O47.03 False labor before 37 completed weeks of gestation, third trimester (principal); O26.23 Pregnancy care for patient with recurrent pregnancy loss, third trimester; Z3A.33 33 weeks gestation of pregnancy
CPT/HCPCS: 59025; G0378; G0379

== ENCOUNTER 2019-11-20 10:33 | Observation (INO) | payer OTHER, MEDICAID, SELFPAY ==
[2019-10-16 23:44] VITALS: BMI 25.3
[2019-11-20 12:52] LABS: Add Manual Diff / Slide Review NO; Basophils Absolute Auto 0 /uL (0-100); Basophils Percent Auto 0.3 % (0-2); Eosinophils Absolute Auto 200 /uL (0-450); Eosinophils Percent Auto 2.6 % (2-4); Hematocrit 30.3 % (36-46); Hemoglobin 10.5 g/dL (12.0-16.0); Lymphocytes Absolute Auto 1300 /uL (1100-4500); Lymphocytes Percent Auto 15.8 % (25-40); Mean Corpuscular HGB Conc 34.5 % (30-36); Mean Corpuscular Hemoglobin 31.6 PG (26-34); Mean Corpuscular Volume 91.4 fL (80-100); Monocytes Absolute Auto 300 /uL (0-900); Monocytes Percent Auto 3.6 % (3-14); Neutrophils Absolute Auto 6600 /uL (1500-7000); Neutrophils Percent Auto 77.7 % (50-75); Platelet Count 130 X10^3/uL (150-400); Red Blood Cell Count 3.31 X10^6/uL (4.0-5.2); Red Cell Distribution Width 14.4 % (11.6-14.8); White Blood Cell Count 8.5 X10^3/uL (4.5-11.0)
[2019-11-20 12:53] LABS: Aspartate Aminotransferase 17 IU/L (14-36); BUN Creatinine Ratio 7.6 (6-22); Blood Urea Nitrogen 5 mg/dL (7-17); Estimated Glomerular Filt Rate > 60.0 mL/min (>60); Uric Acid 6.6 mg/dL (2.5-6.2)
[2019-11-20 14:07] LABS: Creatinine Urine Random 142.7 mg/dL; Protein (Total) Urine Random 17 mg/dL (0-12); Protein Creatinine Ratio Urine 0.11 GRAM/24H
--- NOTE | 2019-12-04 06:18 | P.TNLD_ITS ---
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) OCD (obsessive compulsive disorder) (Acute) Pyelonephritis (Acute) Tonsillitis (Acute) UTI (urinary tract infection) (Acute) Surgical History History of inguinal hernia repair (Acute) Family History Mother Hypertension Recurrent strokes Father Adopted Grandfather Tourettes syndrome Family/Other Tourettes syndrome Brother Tourettes syndrome Autism Grandmother Breast cancer Social History marital status: unmarried,single household members: family and children pets and animals: Yes (X 5 dogs; X 6 cats - lives on a Farm : aware!) education level: vocational occupational status: employed current occupational exposures/hazards: Yes (second hand smoke) special david needs: No Smoking Status: Current some day smoker alcohol intake: never Objective Labs Result Diagrams: 11/20/19 12:20 11/20/19 12:20 Evaluation Evaluation Baseline heart rate: 135 Variability: Moderate (11-25) monitor accelerations: Present monitor decelerations: Absent Contraction Frequency (minutes): 15 Uterine Contraction Intensity: Mild Category of Tracing: Reactive Laboratory results: Laboratory Tests 11/20/19 11/20/19 11/20/19 11:30 12:20 12:20 WBC 8.5 RBC 3.31 L Hgb 10.5 L Hct 30.3 L MCV 91.4 MCH 31.6 MCHC 34.5 RDW 14.4 Plt Count 130 L Neut % (Auto) 77.7 H Lymph % (Auto) 15.8 L [place] % (Auto) 3.6 Eos % (Auto) 2.6 Baso % (Auto) 0.3 Neut # (Auto) 6600 Lymph # (Auto) 1300 [place] # (Auto) 300 Eos # (Auto) 200 Baso # (Auto) 0 BUN 5 L Creatinine 0.66 Estimated GFR > 60.0 BUN/Creatinine Ratio 7.6 Uric Acid 6.6 H AST 17 U Random Total Protein 17 H Urine Creatinine 142.7 Protein/Creatinin Ratio 0.11 Diagnosis, Plan/Disposition Plan/Disposition Plan: Assessment: 23-year-old 7 para 1 at 36-,3/7 weeks gestation with elevated blood pressure in the office Reactive nonstress test Normal PIH labs Plan: Discharge to home Signs and symptoms of PIH reviewed kick counts reviewed Follow-up as scheduled next week for her OB appointment OB Disposition: home
== END 2019-11-20 14:05 | disposition home or self-care (01) ==
PROVIDERS: Admitting Provider Obstetrics & Gynecology; Family Provider Physician Assistant Medical; PCP Obstetrics & Gynecology; Referring Provider Obstetrics & Gynecology; Visit Provider Obstetrics & Gynecology
DX: O14.93 Unspecified pre-eclampsia, third trimester (principal); O26.23 Pregnancy care for patient with recurrent pregnancy loss, third trimester; O99.333 Smoking (tobacco) complicating pregnancy, third trimester; Z3A.36 36 weeks gestation of pregnancy
CPT/HCPCS: 59025; 59050; 82570; 84156; 84450; 84550; 85025; 87653; G0378; G0379

== ENCOUNTER 2019-12-04 13:00 | Inpatient (IN) | payer OTHER, MEDICAID, SELFPAY ==
[2019-10-16 23:44] VITALS: BMI 25.3
[2019-12-04 13:19] LABS: Add Manual Diff / Slide Review NO; Basophils Absolute Auto 0 /uL (0-100); Basophils Percent Auto 0.5 % (0-2); Eosinophils Absolute Auto 100 /uL (0-450); Eosinophils Percent Auto 1.5 % (2-4); Hematocrit 29.2 % (36-46); Hemoglobin 10.1 g/dL (12.0-16.0); Lymphocytes Absolute Auto 1100 /uL (1100-4500); Lymphocytes Percent Auto 14.2 % (25-40); Mean Corpuscular HGB Conc 34.5 % (30-36); Mean Corpuscular Volume 92.5 fL (80-100); Monocytes Absolute Auto 300 /uL (0-900); Monocytes Percent Auto 4.2 % (3-14); Neutrophils Absolute Auto 6200 /uL (1500-7000); Neutrophils Percent Auto 79.6 % (50-75); Platelet Count 100 X10^3/uL (150-400); Red Blood Cell Count 3.16 X10^6/uL (4.0-5.2); Red Cell Distribution Width 14.4 % (11.6-14.8); White Blood Cell Count 7.8 X10^3/uL (4.5-11.0)
[2019-12-04 13:35] LABS: Aspartate Aminotransferase 15 IU/L (14-36); BUN Creatinine Ratio 8.6 (6-22); Blood Urea Nitrogen 7 mg/dL (7-17); Estimated Glomerular Filt Rate > 60.0 mL/min (>60)
--- NOTE | 2019-12-04 13:49 | PM.OBTRLD ---
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) OCD (obsessive compulsive disorder) (Acute) Pyelonephritis (Acute) Tonsillitis (Acute) UTI (urinary tract infection) (Acute) Surgical History History of inguinal hernia repair (Acute) Family History Mother Hypertension Recurrent strokes Father Adopted Grandfather Tourettes syndrome Family/Other Tourettes syndrome Brother Tourettes syndrome Autism Grandmother Breast cancer Social History marital status: unmarried,single household members: family and children pets and animals: Yes (X 5 dogs; X 6 cats - lives on a Farm : aware!) education level: vocational occupational status: employed current occupational exposures/hazards: Yes (second hand smoke) special david needs: No Smoking Status: Current some day smoker alcohol intake: never Objective Labs Result Diagrams: 12/04/19 13:15 12/04/19 13:15 Labs: Laboratory Results - last 24 hr 12/04/19 12/04/19 13:15 13:15 WBC 7.8 RBC 3.16 L Hgb 10.1 L Hct 29.2 L MCV 92.5 MCH 32.0 MCHC 34.5 RDW 14.4 Plt Count 100 L Neut % (Auto) 79.6 H Lymph % (Auto) 14.2 L [place] % (Auto) 4.2 Eos % (Auto) 1.5 L Baso % (Auto) 0.5 Neut # (Auto) 6200 Lymph # (Auto) 1100 [place] # (Auto) 300 Eos # (Auto) 100 Baso # (Auto) 0 BUN 7 Creatinine 0.81 Estimated GFR > 60.0 BUN/Creatinine Ratio 8.6 Uric Acid 7.0 H AST 15 Evaluation Evaluation Baseline heart rate: 125 Variability: Moderate (11-25) monitor accelerations: Present monitor decelerations: Absent Category of Tracing: Reactive Cervical dilation (cm): 1 Cervical effacement (%): 80 station: -1 Laboratory results: Laboratory Tests 12/04/19 12/04/19 13:15 13:15 WBC 7.8 RBC 3.16 L Hgb 10.1 L Hct 29.2 L MCV 92.5 MCH 32.0 MCHC 34.5 RDW 14.4 Plt Count 100 L Neut % (Auto) 79.6 H Lymph % (Auto) 14.2 L [place] % (Auto) 4.2 Eos % (Auto) 1.5 L Baso % (Auto) 0.5 Neut # (Auto) 6200 Lymph # (Auto) 1100 [place] # (Auto) 300 Eos # (Auto) 100 Baso # (Auto) 0 BUN 7 Creatinine 0.81 Estimated GFR > 60.0 BUN/Creatinine Ratio 8.6 Uric Acid 7.0 H AST 15 Diagnosis, Plan/Disposition Plan/Disposition Plan: Assessment: 23-year-old at 38 and 3/7 weeks gestations with preeclampsia Plan: Pitocin induction of labor OB Disposition: admit to hospital
[2019-12-04] MEDS: OXYTOCIN PREMIX 30 UNIT/500 ML PLAST..BAG IV (14:41)
[2019-12-04] MEDS: LACTATED RINGERS 1,000 ML 100 ML IV (14:41)
[2019-12-04 14:44] LABS: Add Manual Diff / Slide Review NO; Basophils Absolute Auto 0 /uL (0-100); Basophils Percent Auto 0.5 % (0-2); Eosinophils Absolute Auto 100 /uL (0-450); Eosinophils Percent Auto 1.5 % (2-4); Hematocrit 31.3 % (36-46); Hemoglobin 11.1 g/dL (12.0-16.0); Lymphocytes Absolute Auto 1400 /uL (1100-4500); Lymphocytes Percent Auto 16.1 % (25-40); Mean Corpuscular HGB Conc 35.5 % (30-36); Mean Corpuscular Hemoglobin 32.7 PG (26-34); Mean Corpuscular Volume 92.1 fL (80-100); Monocytes Absolute Auto 500 /uL (0-900); Monocytes Percent Auto 5.7 % (3-14); Neutrophils Absolute Auto 6700 /uL (1500-7000); Neutrophils Percent Auto 76.2 % (50-75); Platelet Count 126 X10^3/uL (150-400); Red Cell Distribution Width 14.5 % (11.6-14.8); White Blood Cell Count 8.8 X10^3/uL (4.5-11.0)
[2019-12-04 14:55] LABS: COVID19 -Nasal RAPID Negative (Negative)
[2019-12-04 17:00] VITALS: BP 133/71
--- NOTE | 2019-12-04 18:19 | P.HPOB_ITS ---
OB HPI Date/Time Date of admission: 12/04/19 Date Patient Seen: 12/04/19 Time Patient Seen: 18:19 History of Present Condition Chief complaint: Observation of Labor : 7 Para: 1 Estimated Date of Delivery: 12/15/19 Estimated Gestational Age (weeks): 38+ 3 Narrative: Aimee Ortiz is a 23 year old female 7 para 1 who presented with elevated blood pressures at home. She has had headaches over the last few days. No visual changes. Good movement. She was found to have slightly elevated blood pressures on labor and delivery, elevated uric acid, decreased platelets. She is admitted for induction of labor Indications Indication for induction OB: medical complication (Gestational hypertension) History of Present care: good care, initiated at week #, number of visits (13) and pounds weight gain (29) Dating criteria: LMP confirmed by 1st trimester US Ultrasounds: normal 1st trimester US and normal mid trimester US Obstetrical complications: other (Pyelonephritis) Medical complications: genitourinary (Pyelonephritis) Preadmission Labs Blood type: B (+) positive -: Antibody screen: negative, GBS status: negative, HBsAG: negative, HIV: negative and RPR/VDLR: negative -: Chlamydia screen: not detected and Gonorrhea screen: not detected -: Rubella: immune and Varicella: immune HCT: 31.3 HCAB: negative PAP: Normal Urine: Negative 1 hr GTT: 134 Prior (ies) History: One spontaneous vaginal delivery Evaluation Evaluation Baseline heart rate: 135 Variability: Moderate (11-25) monitor decelerations: Absent Uterine Contraction Intensity: Mild Category of Tracing: Reactive Cervical dilation (cm): 1 Cervical effacement (%): 80 station: -1 Laboratory results: Laboratory Tests 12/04/19 12/04/19 12/04/19 13:15 13:15 14:20 WBC 7.8 RBC 3.16 L Hgb 10.1 L Hct 29.2 L MCV 92.5 MCH 32.0 MCHC 34.5 RDW 14.4 Plt Count 100 L Neut % (Auto) 79.6 H Lymph % (Auto) 14.2 L [place] % (Auto) 4.2 Eos % (Auto) 1.5 L Baso % (Auto) 0.5 Neut # (Auto) 6200 Lymph # (Auto) 1100 [place] # (Auto) 300 Eos # (Auto) 100 Baso # (Auto) 0 BUN 7 Creatinine 0.81 Estimated GFR > 60.0 BUN/Creatinine Ratio 8.6 Uric Acid 7.0 H AST 15 COVID-19 PCR Blood Type B Positive Antibody Screen Negative 12/04/19 12/04/19 14:25 14:25 WBC 8.8 RBC 3.40 L Hgb 11.1 L Hct 31.3 L MCV 92.1 MCH 32.7 MCHC 35.5 RDW 14.5 Plt Count 126 L Neut % (Auto) 76.2 H Lymph % (Auto) 16.1 L [place] % (Auto) 5.7 Eos % (Auto) 1.5 L Baso % (Auto) 0.5 Neut # (Auto) 6700 Lymph # (Auto) 1400 [place] # (Auto) 500 Eos # (Auto) 100 Baso # (Auto) 0 BUN Creatinine Estimated GFR BUN/Creatinine Ratio Uric Acid AST COVID-19 PCR Negative Blood Type Antibody Screen COUNTS INCLUDE 234 BEDS AT THE [facility] Medical History (Updated 11/06/19 @ 10:53 by Faby Chambers MD) Anxiety (Acute) Asthma (Acute) Depression (Acute) 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) OCD (obsessive compulsive disorder) (Acute) Pyelonephritis (Acute) Tonsillitis (Acute) UTI (urinary tract infection) (Acute) Surgical History History of inguinal hernia repair (Acute) Family History Mother Hypertension Recurrent strokes Father Adopted Grandfather Tourettes syndrome Family/Other Tourettes syndrome Brother Tourettes syndrome Autism Grandmother Breast cancer Social History marital status: unmarried,single household members: family and children pets and animals: Yes (X 5 dogs; X 6 cats - lives on a Farm : aware!) education level: vocational occupational status: employed current occupational exposures/hazards: Yes (second hand smoke) special david needs: No Smoking Status: Current every day smoker alcohol intake: never Meds Home Medications and Allergies Home Medications Medication Instructions Recorded Confirmed Type albuterol sulfate [Ventolin HFA] 2 puff INH PRN PRN #0 06/10/12 12/04/19 History vitamins no.119-iron 1 tab PO DAILY 04/15/19 12/04/19 History fumarate 29 mg-folic acid 1 mg tablet metoclopramide HCl 10 mg tablet 10 mg PO Q6H PRN #30 tab 08/07/19 12/04/19 Rx nitrofurantoin macrocrystal 100 mg 100 mg PO DAILY #30 cap 10/23/19 12/04/19 Rx capsule Allergies Allergy/AdvReac Type Severity Reaction Status Date / Time No Known Drug Allergies Allergy Verified 12/02/19 15:46 Exam Vital Signs (past 8 hours): - 12/04/19 17:00 Blood Pressure 133/71 Narrative Exam Narrative: Generally: Patient is sitting up in bed, very comfortable with contractions Lungs: Clear to auscultation bilaterally Cardiovascular: Regular rate and rhythm Fundal height: 39 cm Estimated weight: 7-1/2 lb Extremities: No clonus, 1+ DTRs, 1+ edema Objective Labs Result Diagrams: 12/04/19 14:25 12/04/19 13:15 Labs: Laboratory Results - last 24 hr 12/04/19 12/04/19 12/04/19 13:15 13:15 14:20 WBC 7.8 RBC 3.16 L Hgb 10.1 L Hct 29.2 L MCV 92.5 MCH 32.0 MCHC 34.5 RDW 14.4 Plt Count 100 L Neut % (Auto) 79.6 H Lymph % (Auto) 14.2 L [place] % (Auto) 4.2 Eos % (Auto) 1.5 L Baso % (Auto) 0.5 Neut # (Auto) 6200 Lymph # (Auto) 1100 [place] # (Auto) 300 Eos # (Auto) 100 Baso # (Auto) 0 BUN 7 Creatinine 0.81 Estimated GFR > 60.0 BUN/Creatinine Ratio 8.6 Uric Acid 7.0 H AST 15 COVID-19 PCR Blood Type B Positive Antibody Screen Negative 12/04/19 12/04/19 14:25 14:25 WBC 8.8 RBC 3.40 L Hgb 11.1 L Hct 31.3 L MCV 92.1 MCH 32.7 MCHC 35.5 RDW 14.5 Plt Count 126 L Neut % (Auto) 76.2 H Lymph % (Auto) 16.1 L [place] % (Auto) 5.7 Eos % (Auto) 1.5 L Baso % (Auto) 0.5 Neut # (Auto) 6700 Lymph # (Auto) 1400 [place] # (Auto) 500 Eos # (Auto) 100 Baso # (Auto) 0 BUN Creatinine Estimated GFR BUN/Creatinine Ratio Uric Acid AST COVID-19 PCR Negative Blood Type Antibody Screen Assessment and Plan Assessment and Plan Assessment and Plan narrative: Assessment: 23-year-old 7 para 1 at 38-,3/7 weeks gestation with gestational hypertension, elevated uric acid, and decreased platelets Plan: Pitocin induction of labor Repeat platelets every 6 hours Patient may have Ambien as needed for sleep Expected management to spontaneous vaginal delivery Time Spent with Patient Total time spent with greater than 50% in coordination of care (as documented) at patient's floor/unit and/or counseling patient:: 15-24 minutes
[2019-12-04] MEDS: CALCIUM CARBONATE 500 MG TAB 1000 MG PO (18:26)
[2019-12-04] MEDS: NICOTINE 7 MG PATCH TOP (18:26)
[2019-12-04 20:40] LABS: Platelet Count 110 X10^3/uL (150-400)
[2019-12-04 21:20] VITALS: BP 150/98
[2019-12-04] MEDS: LABETALOL 100 MG TABLET PO (21:20)
[2019-12-04] MEDS: ACETAMINOPHEN 325 MG TABLET 650 MG PO (23:30)
[2019-12-04 23:42] VITALS: BP 135/86
[2019-12-05] VITALS (7 sets, daily range): BP systolic 122–168; BP diastolic 60–95; PULSE 60–80; RESP 10–14; TEMP 37; O2SAT 98–99
[2019-12-05] MEDS: ZOLPIDEM 5 MG TABLET PO (00:17)
[2019-12-05] MEDS: LACTATED RINGERS 1,000 ML 100 ML IV ×4 (00:17→14:59)
[2019-12-05] MEDS: ACETAMINOPHEN 325 MG TABLET 650 MG PO (03:25)
[2019-12-05] MEDS: LABETALOL 100 MG TABLET PO ×2 (07:57→21:05)
--- NOTE | 2019-12-05 09:54 | PM.EVENT ---
Event Note Date Patient Seen: 12/04/19 Time Patient Seen: 21:50 Event Note: Called by the evening nurse to assess position of the baby. This patient was on Pitocin for induction of labor due to preeclampsia. When nurse checked her she felt that the baby was in the breech presentation. On ultrasound examination. The baby was in the breech presentation with the head in the right upper quadrant and buttocks and legs in the pelvis. The Pitocin had previously been turned off. The contractions were spacing out. A decision was made to wait until morning and attempt an external cephalic version with an epidural, and if this was not successful we would proceed to primary low-transverse section. The patient and her mother agree with the plan.
--- NOTE | 2019-12-05 09:56 | PM.PROC.1 ---
Procedures Date/Time Date of procedure: 12/05/19 Time of procedure: 09:56 General Procedure description: After informed consent was obtained, the patient was placed flat on the bed. An ultrasound was performed which revealed the baby's head in the right upper quadrant and buttocks and legs in the pelvis. For attempts at external cephalic version were attempted. The baby moved to the transverse, and then oblique presentation, but the heart rate dropped into the 60s. The procedure was stopped.Oxygen was placed on the mom and she was placed in the right lateral position, which allowed the baby's heart rate come back up into the 140s. Assessment: Failed external cephalic version due to intolerance Plan: Primary section The risks, benefits, and alternatives to the procedure were explained to the patient. The risks including bleeding, infection, injury to the bowel, bladder, or ureters. She understands these risks and agrees to proceed. A full par Q was held and consent form was signed. Complications: other ( intolerance of the procedure)
--- NOTE | 2019-12-05 10:05 | PM.PREOP ---
Pre-operative Note COVID-19 COVID-19 status: Negative Result date/Date tested (Pos, Neg/Pending): 12/04/19 Interval Note History & Physical reviewed/Exam performed by Physician: Yes Changes to H&P: No H&P completed within 30 days and has changed as indicated here:: 12/04/19
[2019-12-05] MEDS: CEFAZOLIN 2 GM/100 ML FROZ.PIGGY IV (10:15)
--- NOTE | 2019-12-05 10:45 | SUR.OPER ---
Supine on Padded OR bed, head on pillow, safety belt at thigh, arms secured on padded arm boards at <90 degrees abduction. Bump under right buttock. Legs uncrossed with pillow under knees, gel pad to heels, tape over blanket to lower legs.
--- NOTE | 2019-12-05 10:55 | SUR.OPER ---
fht 140 live female born at 1029
--- NOTE | 2019-12-05 11:12 | PM.GYNOP.1 ---
Operative Date/Time/Diagnoses Date of procedure: 12/05/19 Time of procedure: 11:12 Pre-op diagnosis: 38-4/7 weeks gestation Persistent breech presentation Failed external cephalic version due to intolerance Mild preeclampsia Post-op diagnosis: same Procedure & Clinicians Procedure: Procedures Operation Date: 12/05/19 10:00 Actual Procedures Side Surgeon p Section Faby Chambers MD Indications: Persistent breech presentation 38-4/7 weeks gestation Failed external version Mild preeclampsia Surgeon: Faby Chambers Oven Equipment Repairer: Wendy Nuñez Anesthesia Type: Spinal (With Duramorph) Operative Notes Findings: Live female infant in yogesh breech presentation Umbilical cord wrapped around the baby's legs and feet Normal uterus, tubes, and ovaries Closure Type: primary Specimen(s): other (Cord bloods, placenta) Applied: catheter (To continuous drainage) Estimated blood loss (mL): 650 Blood products transfused: none Procedure in detail: The patient was taken to the operating room where she was placed in the seated position. Spinal anesthesia was administered. She was then placed in the dorsal supine position with a leftward tilt. She was prepped and draped in the usual sterile fashion. A timeout was performed. After spinal analgesia was found to be adequate, a Pfannenstiel skin incision was made 2 fingerbreadths above the pubic symphysis and carried through to the underlying layer fascia. The fascia was nicked in the midline, and the incision extended bilaterally with the [place] scissors. The superior aspect of the fascial incision was grasped with a [place] clamps, elevated, and the underlying rectus muscles dissected off sharply and bluntly. Attention was then turned to the inferior aspect of this incision which in a similar fashion was grasped with a [place] clamps, elevated, and the underlying rectus muscles dissected off sharply and bluntly. The rectus muscles were in the midline. The peritoneum was identified, grasped between 2 hemostats, and entered sharply with the Metzenbaum scissors. This incision was extended superiorly and inferiorly with good visualization of the bladder. The bladder blade was inserted. The vesicouterine peritoneum was identified, grasped with the pickup, and entered sharply with the Metzenbaum scissors. This incision was extended bilaterally, and the bladder flap was created digitally. The bladder blade was reinserted. The lower uterine segment was incised in a transverse fashion with the scalpel. Upon entering the amniotic sac there was a moderate amount of clear amniotic fluid. The was delivered with total breech extraction. The cord was double clamped and cut. The infant was handed off to waiting RN and RT. The placenta was delivered manually. The uterus was cleared of all clots and debris. The uterine incision was repaired with #1 chromic in a running interlocking fashion, and a second layer the same suture was used for an imbricating layer. Hemostasis was achieved. The tubes and ovaries were examined and were found to be normal. The gutters were cleared of all clots and debris. The bladder flap was reapproximated using 2-0 Vicryl in a running fashion. The parietal peritoneum was closed using 2-0 Vicryl in a running fashion. The fascia was reapproximated using 0 Vicryl in a running fashion. Subcutaneous layer was copiously irrigated with warm normal saline. Five simple interrupted sutures of 3-0 Vicryl were placed to reapproximate the subcutaneous layer. The skin was closed with 4-0 Biosyn in a subcuticular fashion. Steri-Strips were placed. An Aquacel dressing was placed. The uterus was expressed of a small amount of old blood. Sponge, lap, and instrument counts were correct ?-2. The patient tolerated the procedure well, and was taken to PACU in stable condition. Complications: none Post-operative Condition: stable Disposition: PACU Plan for aftercare: To the center after recovery
--- NOTE | 2019-12-05 11:33 | SUR.PHASEI ---
report called to Zabrina.
--- NOTE | 2019-12-05 12:07 | SUR.PHASEI ---
Patient transferred to the center. VS stable. IV patent with LR/Oxytocin. Sinclair patent. Fundus and pad checked with RN. Abd dressing CDI. +PP x2.
[2019-12-05] MEDS: diphenhydrAMINE 50 MG/ML VIAL 25 MG IV (12:33)
[2019-12-05 14:21] LABS: Add Manual Diff / Slide Review NO; Basophils Absolute Auto 0 /uL (0-100); Basophils Percent Auto 0.1 % (0-2); Eosinophils Absolute Auto 100 /uL (0-450); Eosinophils Percent Auto 0.8 % (2-4); Hematocrit 29.5 % (36-46); Hemoglobin 9.9 g/dL (12.0-16.0); Lymphocytes Absolute Auto 1200 /uL (1100-4500); Lymphocytes Percent Auto 9.7 % (25-40); Mean Corpuscular HGB Conc 33.6 % (30-36); Mean Corpuscular Hemoglobin 31.3 PG (26-34); Mean Corpuscular Volume 93.2 fL (80-100); Monocytes Absolute Auto 300 /uL (0-900); Monocytes Percent Auto 2.7 % (3-14); Neutrophils Absolute Auto 10600 /uL (1500-7000); Neutrophils Percent Auto 86.7 % (50-75); Platelet Count 123 X10^3/uL (150-400); Red Blood Cell Count 3.16 X10^6/uL (4.0-5.2); Red Cell Distribution Width 14.2 % (11.6-14.8); White Blood Cell Count 12.2 X10^3/uL (4.5-11.0)
[2019-12-05] MEDS: OXYCODONE/ACETAMINOPHEN 5/325 TABLET 1 TAB PO ×3 (16:18→23:58)
[2019-12-05] MEDS: KETOROLAC 30 MG/ML VIAL IV ×2 (16:18→23:58)
[2019-12-05] MEDS: LANOLIN OINT 7 GM 1 APPLIC TOP (19:33)
[2019-12-05] MEDS: NICOTINE 7 MG PATCH TOP ×3 (19:37→21:24)
[2019-12-06] MEDS: OXYCODONE/ACETAMINOPHEN 5/325 TABLET 1 TAB PO ×2 (04:00→07:59)
[2019-12-06] MEDS: KETOROLAC 30 MG/ML VIAL IV (06:13)
[2019-12-06] MEDS: LABETALOL 100 MG TABLET PO (08:52)
[2019-12-06] MEDS: PRENATAL VIT,CALC/IRON/FOLIC 1 TABLET 1 TAB PO (08:52)
[2019-12-06] MEDS: DOCUSATE 250 MG CAPSULE PO (08:53)
--- NOTE | 2019-12-06 09:32 | PM.OBPN.1 ---
Subjective - OB Subjective Patient comments: no complaints, pain well controlled, tolerating diet and flatus present baby status: doing well and nursing well Hamill feeding status: exclusively breast feeding Narrative: This patient is a 23-year-old now para 2 postop day 1 status post primary section for breech in the setting of preeclampsia without severe features. The patient's blood pressure is well controlled on labetalol and she has no PIH complaints today. The patient strongly desires discharge this morning, discussed reviewing her symptoms and blood pressures this evening. Patient is ambulating, tolerating p.o., good pain control, voiding, passing flatus, mild lochia. Date Patient Seen: 12/06/19 Time Patient Seen: 09:32 Exam Vital Signs (past 8 hours): 123/87 Oxygen Delivery Method Room Air Const General: cooperative, healthy appearing, comfortable and well developed Resp Effort & Inspection: normal respiratory effort Auscultation: clear to auscultation bilaterally Cardio Rate: regular rate Rhythm: regular rhythm GI Palpation: soft and No tender Other: Incision clean, dry, intact, fundus firm and well below you. Skin General: no rashes or lesions noted Extrem General: normal to inspection Objective Labs Result Diagrams: 12/05/19 14:10 12/04/19 13:15 Labs: Laboratory Results - last 24 hr 12/05/19 14:10 WBC 12.2 H RBC 3.16 L Hgb 9.9 L Hct 29.5 L MCV 93.2 MCH 31.3 MCHC 33.6 RDW 14.2 Plt Count 123 L Neut % (Auto) 86.7 H Lymph % (Auto) 9.7 L Hodgeman % (Auto) 2.7 L Eos % (Auto) 0.8 L Baso % (Auto) 0.1 Neut # (Auto) 16601 H Lymph # (Auto) 1200 [place]geman # (Auto) 300 Eos # (Auto) 100 Baso # (Auto) 0 Assessment & Plan Assessment and Plan (1) Delivery by section: Status: Acute Plan day: 1 plan OB: routine postop care Comments: This patient is recovering well status post her , blood pressure is well controlled on 100 mg of labetalol b.i.d.. Discussed the risks of discharge with patient, plan to review in evening. Routine postoperative care. Time Spent With Patient Time: Total time spent is greater than 50% in coordination of care (as documented) at patient's floor/unit and/or counseling patient: Time with patient: 15-24 minutes
[2019-12-06 10:23] LABS: Add Manual Diff / Slide Review NO; Basophils Absolute Auto 0 /uL (0-100); Basophils Percent Auto 0.3 % (0-2); Eosinophils Absolute Auto 100 /uL (0-450); Eosinophils Percent Auto 1.5 % (2-4); Hematocrit 23.4 % (36-46); Lymphocytes Absolute Auto 1000 /uL (1100-4500); Lymphocytes Percent Auto 14.3 % (25-40); Mean Corpuscular HGB Conc 34.2 % (30-36); Mean Corpuscular Hemoglobin 31.6 PG (26-34); Mean Corpuscular Volume 92.5 fL (80-100); Monocytes Absolute Auto 400 /uL (0-900); Monocytes Percent Auto 5.1 % (3-14); Neutrophils Absolute Auto 5500 /uL (1500-7000); Neutrophils Percent Auto 78.8 % (50-75); Platelet Count 98 X10^3/uL (150-400); Red Blood Cell Count 2.53 X10^6/uL (4.0-5.2); Red Cell Distribution Width 14.1 % (11.6-14.8)
[2019-12-06 10:34] LABS: Aspartate Aminotransferase 17 IU/L (14-36); BUN Creatinine Ratio 9.2 (6-22); Blood Urea Nitrogen 7 mg/dL (7-17); Estimated Glomerular Filt Rate > 60.0 mL/min (>60); Uric Acid 5.7 mg/dL (2.5-6.2)
[2019-12-06] MEDS: IBUPROFEN 600 MG TABLET PO (12:20)
[2019-12-06] MEDS: OXYCODONE/ACETAMINOPHEN 5/325 TABLET 2 TAB PO ×2 (12:20→15:54)
--- NOTE | 2019-12-06 13:57 | PM.OBDS.1 ---
Discharge Providers Provider Date of admission: 12/04/19 13:00 Discharge Date: 12/06/19 Primary care physician: Faby Chambers MD Consults: 12/05/19 12:32 Consult to Home Health Clinical Supervisor Routine Comment: Discharge provider: Faby Chambers MD Summary Hospital Course Date Patient Seen: 12/06/19 Time Patient Seen: 13:57 Procedures: Pitocin induction of labor Attempted external cephalic version Primary low-transverse section Epidural analgesia Spinal anesthesia with Duramorph Persistent yogesh breech presentation Mild preeclampsia Postoperative anemia Hospital Course: Patient is a 23-year-old who presented with elevated blood pressure, protein in the urine, elevated uric acid, and decreased platelets. She was 38-,3/7 weeks gestation. Pitocin induction of labor was initiated. Later that evening when she was checked by an RN, the RN thought she might be in the breech presentation. MD presented to the hospital and by ultrasound confirmed yogesh breech presentation. The Pitocin was stopped. The next morning breech presentation was confirmed. An external cephalic version was attempted but failed due to intolerance of the procedure. She underwent a primary low-transverse section for persistent breech presentation without complication. Her platelets hovered around 100 throughout her hospital stay. No bump in liver function tests. She is discharged home on postop day # 1. No headaches. She is tolerating a diet. is going well. She has voided without the catheter. She is ambulating without assistance. Peripartum Data Infant Delivery Method: Section Laceration Description: None Episiotomy description: None Procedures: Pitocin induction of labor Failed external cephalic version Epidural analgesia Spinal anesthesia Primary low-transverse section complications: none Naoma 1: Gender: Female Disposition of : home Discharge Diagnosis (1) Delivery by section: Status: Acute Status at Discharge Cognitive/behavioral status at discharge: oriented Functional status at discharge: independent ambulation Overall status at discharge: patient is progressing back to baseline Time Spent with Patient Time attestation: Total time spent providing and/or coordinating discharge services: Time spent: Less than 30 minutes Time spent discussing smoking cessation with patient: 3 to 10 minutes Objective Labs Result Diagrams: 12/06/19 10:16 12/06/19 10:16 Labs: Laboratory Results - last 24 hr 10/01/20 10/02/20 10/02/20 14:10 10:16 10:16 WBC 12.2 H 7.0 RBC 3.16 L 2.53 L Hgb 9.9 L 8.0 L Hct 29.5 L 23.4 L MCV 93.2 92.5 MCH 31.3 31.6 MCHC 33.6 34.2 RDW 14.2 14.1 Plt Count 123 L 98 L Neut % (Auto) 86.7 H 78.8 H Lymph % (Auto) 9.7 L 14.3 L [place] % (Auto) 2.7 L 5.1 Eos % (Auto) 0.8 L 1.5 L Baso % (Auto) 0.1 0.3 Neut # (Auto) 91723 H 5500 Lymph # (Auto) 1200 1000 L [place] # (Auto) 300 400 Eos # (Auto) 100 100 Baso # (Auto) 0 0 BUN 7 Creatinine 0.76 Estimated GFR > 60.0 BUN/Creatinine Ratio 9.2 Uric Acid 5.7 AST 17 Exam Vital Signs (past 8 hours): Oxygen Delivery Method Room Air Narrative Exam Narrative: Generally: Patient is sitting up in bed, holding , no acute distress Lungs: Clear to auscultation bilaterally Cardiovascular: Regular rate and rhythm Abdomen: Soft and flat. Good bowel sounds Fundus: Firm at U -2 Incision: Clean dry and intact with Aquacel dressing Extremities: Negative Homans, 1+ DTRs, no edema Discharge Plan Discharge Plan Patient Disposition: Home Discharge comment: Call with fever, chills, redness or drainage around the incision, or bleeding vaginally more than a pad in an hour Ibuprofen 600 mg every 6 hours Percocet 1-2 tablets every 6 hours in between as needed Continue vitamins and iron Stool softener once or twice a day until stools back to normal Drink plenty of fluids Stay away from cauliflower, broccoli, cabbage or brussel sprouts. Can make the baby very gassy. Discharge orders & Medications Prescriptions: New docusate sodium [Colace] 100 mg capsule 100 mg PO DAILY Qty: 20 RF: 0 ibuprofen 600 mg tablet 600 mg PO Q6H PRN (Reason: Pain or cramping) Qty: 30 RF: 2 labetalol 100 mg tablet 100 mg PO BID Qty: 60 RF: 0 oxycodone-acetaminophen [Percocet] 5-325 mg tablet 1 tab PO Q4-6H PRN (Reason: pain) Qty: 30 RF: 0 Continued albuterol sulfate [Ventolin HFA] 90 MCG/PUFF HFA aerosol inhaler 2 puff INH PRN PRN (Reason: Shortness Of Breath) Qty: 0 RF: 0 PNV 119-iron fum-folic acid 29 mg iron- 1 mg tablet 1 tab PO DAILY RF: 0 Discontinued metoclopramide HCl 10 mg tablet 10 mg PO Q6H PRN (Reason: nausea and vomiting) Qty: 30 RF: 3 nitrofurantoin macrocrystal [Macrodantin] 100 mg capsule 100 mg PO DAILY Qty: 30 RF: 2 Follow up/Referrals: Faby Chambers MD [Primary Care Provider] - 12/11/19 2:15 pm Diet/Activity/Treatments Diet: Regular Activity: No heavy lifting Skin/Wound/Dressing Care Report to your healthcare provider any signs of infection, such as:: chills, fever, increased pain, unusual drainage and unusual redness Dressing: Do not remove Visit Report/Discharge Packet Instructions: Pre-eclampsia, DI for , DI for Prescription Opioid Use Stand Alone Forms: Discharge: Care Discharge Data Primary Care Provider: Faby Chambers
[2019-12-06 14:52] VITALS: BP 128/85; PULSE 84; RESP 14; TEMP 36.9
== END 2019-12-06 16:15 | disposition home or self-care (01) | DRG 540 ==
PROVIDERS: Obstetrics & Gynecology; Admitting Provider Obstetrics & Gynecology; Family Provider Physician Assistant Medical; PCP Obstetrics & Gynecology; Referring Provider Obstetrics & Gynecology; Visit Provider Obstetrics & Gynecology
PROC: 10D00Z1 Extraction of Products of Conception, Low, Open Approach (ICD-10-PCS; CPT 59514; principal; 2019-12-05 10:00)
DX: O14.04 Mild to moderate pre-eclampsia, complicating childbirth (principal); O64.1XX0 Obstructed labor due to breech presentation, not applicable or unspecified; Z3A.38 38 weeks gestation of pregnancy; Z37.0 Single live birth; O75.3 Other infection during labor; O76 Abnormality in fetal heart rate and rhythm complicating labor and delivery; D62 Acute posthemorrhagic anemia; O99.02 Anemia complicating childbirth; O69.89X0 Labor and delivery complicated by other cord complications, not applicable or unspecified; Z11.59 Encounter for screening for other viral diseases
CPT/HCPCS: 01967; 01968; 36415; 59025; 59050; 59412; 59514; 76815; 84450; 84550; 85025; 85049; 86850; 86900; 86901; 87635; G0379; J0690; J1200; J1885; J2274; J2405; J2590